=== PATIENT | male | born 1940 | race Caucasian/White ===

== ENCOUNTER → 2016-10-11 | Outpatient (CLI) | payer MEDICARE, BC ==
[~2016-10-11] MED LIST: ASPIRIN LO-DOSE81 MG PO; BENAZEPRIL-HCT1 EAC2 PO; CRESTOR10 MG PO; EFFIENT10 MG PO; NORVASC5 MG PO; OMEPRAZOLE40 MG PO; TENORMIN25 M1 PO
== END | disposition disaster alternative care site (69) ==
LOC: GRAD 08:59
DX: N18.9 Chronic kidney disease, unspecified (principal)

== ENCOUNTER 2016-10-19 07:30 | Outpatient (CLI) | payer MEDICARE, BC ==
[~2016-10-19] VITALS: Ht 177.8 cm; Wt 98.1 kg
--- NOTE | ~2016-10-19 | OR ---
PATIENT'S NAME: DENISE TAN [facility] AGE: 76 Y [address] ROOM: [address] [address] LOCATION: GPCU ADMIT DATE: 10/19/2016 OR/Procedure Report DISCHARGE DATE: 10/19/2016 FAMILY PHYSICIAN: Jd Javier MD ATTENDING PHYSICIAN: Lavon Cherry SURGEON: Lavon Cherry MD ANIMAL STUNNER: DATE OF PROCEDURE: 10/19/2016 PREOPERATIVE DIAGNOSIS: Severe life-limiting claudication of the left lower extremity. PROCEDURE: 1. Aortogram. 2. Bilateral lower extremity runoff. 3. TP trunk angioplasty. 4. Peroneal artery angioplasty. 5. Posterior tibial artery angioplasty. OPERATIVE FINDINGS: TP trunk, posterior tibial, and peroneal artery high- grade stenosis, occlusion of the anterior tibial proximally. JOURNEYMAN MACHINIST: Deneen. ANESTHESIA: MAC with local. ESTIMATED BLOOD LOSS: 150 mL. DESCRIPTION OF PROCEDURE: The patient was brought to the lab instructor, placed supine on the lab instructor table, prepped and draped in a sterile manner. Preoperative time-out was performed. We gained access using ultrasound guidance via the right groin. We used a micropuncture needle, followed by micropuncture sheath, followed by an exchange using Seldinger technique for a 5-Fijian short sheath. We went up into the aorta using 0.035 Glidewire as well as an Omni Flush catheter and performed an aortogram which showed patent bilateral common external and internal iliac arteries. We then went up and over the aortic bifurcation, and parked our catheter in the common femoral on the left and performed a series of angiograms of the left lower extremity. It showed that the SFA and popliteal were patent, the anterior tibia was occluded at its proximal location, and then there was a high-grade heavily calcified stenosis of the TP trunk that is leading into both the peroneal and the posterior tibial. We exchanged for a 7-Fijian Destination sheath. We then gave 5000 units of heparin. The patient received a total of 7000 units of heparin for the entire case, which was reversed with protamine at the end of the case. We were able to pass two 0.014 wires which were Gladius wires PATIENT'S NAME: DENISE TAN [facility] AGE: 76 Y [address] ROOM: [id number] [place], [place] [address] LOCATION: GPCU ADMIT DATE: 10/19/2016 OR/Procedure Report DISCHARGE DATE: 10/19/2016 FAMILY PHYSICIAN: Jd Javier MD ATTENDING PHYSICIAN: Lavon Cherry across both the peroneal and posterior tibial ostial lesions. We then were able to balloon angioplasty with 3 x 40 Medtronic balloons relieving the stenosis in both the TP trunk as well as the posterior tibial and the peroneal. We then further angioplastied the peroneal and posterior tibial with the same balloons more distally. We performed a completion angiogram which showed that the lesions were relieved. We did not attempt to recannulate the anterior tib. We then removed those balloons and wires. We brought our sheath back to the common femoral on the right. We performed an angiogram which showed two lesions in the distal SFA and popliteal, which we will have to tackle at a later date coming from the opposite side. We attempted to place an 8-Fijian Angio-Seal, but the mechanism failed and we applied manual pressure instead for 15 minutes. The patient tolerated the procedure well, transferred to the recovery room, and allowed to go home later that day. LAVON CHERRY MD FKM/modl /[id number] d: 10/19/161 t: 10/22/16 1010, OPERATIVE SUMMARY
== END 2016-10-19 16:36 | disposition disaster alternative care site (69) ==
LOC: GPCU 07:30 → GCAT 07:30
PROC: B41DYZZ Fluoroscopy of Aorta and Bilateral Lower Extremity Arteries using Other Contrast (ICD-10-PCS; principal; 2016-10-19)
DX: I70.212 Atherosclerosis of native arteries of extremities with intermittent claudication, left leg (principal)
CPT/HCPCS: C1725; C1760; C1769; C1887; J0690; J1644; J2001; J2250; J2720; J3010; J7030

== ENCOUNTER 2016-11-02 09:24 | Outpatient (CLI) | payer MEDICARE, BC ==
[~2016-11-02] VITALS: Ht 175.3 cm; Wt 96.2 kg
--- NOTE | ~2016-11-02 | OR ---
PATIENT'S NAME: DENISE TAN [facility] AGE: 76 Y [address] ROOM: [place] [address] LOCATION: GPCU ADMIT DATE: 11/02/2016 OR/Procedure Report DISCHARGE DATE: FAMILY PHYSICIAN: Jd Javier MD ATTENDING PHYSICIAN: LAVON CHERRY SURGEON: Lavon Cherry MD AUTOMOTIVE PARTS COUNTER ASSOCIATE: DATE OF PROCEDURE: 11/02/2016 PREOPERATIVE DIAGNOSIS: Severe, life-limiting claudication of the right lower extremity. POSTOPERATIVE DIAGNOSIS: Severe, life-limiting claudication of the right lower extremity. PROCEDURES PERFORMED: Right lower extremity angiogram, superficial femoral artery arthrectomy with angioplasty and drug-coated balloon, and right popliteal angioplasty with drug-coated balloon. NEW CAR SALESPERSON: sánchez Laureano. ANESTHESIA: MAC, local. ESTIMATED FLUID LOSS: 30 mL. OPERATIVE FINDINGS: SFA and popliteal high-grade stenosis which were angioplastied at the end of the case. Palpable DP pulse at the end of the case. DESCRIPTION OF PROCEDURE: The patient was brought to the high density press laborer, placed supine on the high density press laborer table, and prepped and draped in a sterile manner. Preoperative time-out was performed. We gained access via the left groin using ultrasound guidance. We first infiltrated the skin with 1% lidocaine. We then entered with a micropuncture needle and a micropuncture sheath. We exchanged using Seldinger technique for a 5-Nepalese short sheath. We went up in the aorta with a 0.035 wire as well as an Omni Flush catheter. We had already performed an aortogram a week prior and knew that there were no aortic lesions, so we bypassed this and just placed our catheter up and over the bifurcation in the common femoral on the right. We then exchanged over a Magic Torque wire for a 7-Nepalese Destination sheath, and we then proceeded to give the patient 5000 units of heparin. We performed an angiogram which showed the high-grade SFA lesion as well as the popliteal lesion. We were able to cross with a 0.035 Glidewire as well as a TrailBlazer catheter. We then exchanged for a 7 mm Spider which we parked in the distal popliteal. We then performed arthrectomy using a TurboHawk device in the SFA, removing a PATIENT'S NAME: DENISE TAN [facility] AGE: 76 Y [address] ROOM: [address] [place] [address] LOCATION: [facility] ADMIT DATE: 11/02/2016 OR/Procedure Report DISCHARGE DATE: FAMILY PHYSICIAN: Jd Javier MD ATTENDING PHYSICIAN: LAVON CHERRY significant amount of plaque burden, and then we balloon angioplastied with 7 mm drug-coated balloon, which with the final balloon. We also used a 6 x 120 balloon prior to that, which was also a drug-coated balloon. We then turned our attention to the popliteal. We wanted to perform arthrectomy of the popliteal, but we felt like the lesion was too proximal to the TP trunk, and we felt that it was too risky to attempt this, so we simply angioplastied with a 6 x 40 drug-coated balloon. The relief of the stenosis was excellent with 80%, but there still was some residual calcium. We felt that this was adequate though, looking at the flow through the lesion comparing to prior. We removed all devices, held pressure in the groin for 15 minutes. Protamine was used to reverse the heparin. The patient tolerated the procedure well and was transferred to the recovery room and then home later that day. LAVON CHERRY MD FKM/modl /[id number] d: 11/02/16 183 t: 11/06/16 1042, OPERATIVE SUMMARY
== END 2016-11-02 19:20 | disposition disaster alternative care site (69) ==
LOC: GPCU 09:24 → GOPP 09:24 → GPCU 09:25 → GOPP 10:00
PROC: B40FYZZ Plain Radiography of Right Lower Extremity Arteries using Other Contrast (ICD-10-PCS; principal; 2016-11-02)
DX: I73.9 Peripheral vascular disease, unspecified (principal)
CPT/HCPCS: C1714; C1725; C1769; C1884; C1887; J0690; J1644; J2001; J2250; J2720; J3010; J7030

== ENCOUNTER → 2017-01-21 | Outpatient (CLI) | payer MEDICARE, BC | END | disposition disaster alternative care site (69) | LOC: GRAD 12:37 | DX: M54.9 Dorsalgia, unspecified (principal); R19.7 Diarrhea, unspecified; R06.02 Shortness of breath; I26.99 Other pulmonary embolism without acute cor pulmonale | CPT/HCPCS: A9539; A9540 ==

== ENCOUNTER → 2017-04-05 | Outpatient (CLI) | payer MEDICARE, BC | LOC: LGSMG 13:19 | DX: I10 Essential (primary) hypertension (principal); N28.9 Disorder of kidney and ureter, unspecified ==